=== PATIENT | male | born 1985 | race Caucasian/White ===

== ENCOUNTER 2019-07-14 08:26 | Emergency (ER) | payer OTHER ==
[~2019-07-14] VITALS: Ht 177.8 cm; Wt 90.7 kg
[2019-07-14] MEDS ORDERED: PRILOSEC OTC20 MG PO (08:44)
[2019-07-14] MEDS ORDERED: SERTRALINE HCL50 MG PO (08:44)
[2019-07-14 11:55] VITALS: BP 111/57
== END 2019-07-14 12:07 | disposition home or self-care (01) ==
LOC: ER 08:26
DX: S82.831A Other fracture of upper and lower end of right fibula, initial encounter for closed fracture (principal); S80.212A Abrasion, left knee, initial encounter; F17.210 Nicotine dependence, cigarettes, uncomplicated; V28.4XXA Motorcycle driver injured in noncollision transport accident in traffic accident, initial encounter; Y93.89 Activity, other specified; Y92.89 Other specified places as the place of occurrence of the external cause; Y99.8 Other external cause status